=== PATIENT | female | born 1950 | race Two or more races ===

== ENCOUNTER → 2017-08-28 | Outpatient (CLI) | payer MEDICARE, OTHER | END | disposition home or self-care (01) | LOC: MAMMO 08:09 | DX: Z12.31 Encounter for screening mammogram for malignant neoplasm of breast (principal); D86.9 Sarcoidosis, unspecified | CPT/HCPCS: 71046; 77063; 77067 ==

== ENCOUNTER 2018-08-31 20:10 | Emergency (ER) | payer MEDICARE, OTHER ==
[~2018-08-31] VITALS: Ht 165.1 cm; Wt 104.3 kg
--- NOTE | 2018-08-31 20:38 | PHYS DOC ---
Adult General Chief Complaint Chief Complaint: MECHANICAL FALL HPI HPI Patient is a 67 year old female who presents to the ED today status post falling down 3 steps. Patient denies any loss of consciousness. She is complaining of mild right forehead pain, right humerus pain, right lateral rib pain. She states she was walking down the steps when she fell. Patient denies being on any blood pain is. Denies any neck pain. Denies any back pain. (CHANDRAKANT CHAPIN APRN) Review of Systems Review of Systems Constitutional: Denies fever or chills [] Eyes: Denies change in visual acuity, redness, or eye pain [] HENT: Denies nasal congestion or sore throat [] Respiratory: Reports right lateral rib pain. Denies cough or shortness of breath [] Cardiovascular: No additional information not addressed in HPI [] GI: Denies abdominal pain, nausea, vomiting, bloody stools or diarrhea [] : Denies dysuria or hematuria [] Musculoskeletal: Reports right humerus pain Integument: Denies rash or skin lesions [] Neurologic: Reports right forehead pain. Denies headache, focal weakness or sensory changes [] All other systems were reviewed and found to be within normal limits, except as documented in this note. (CHANDRAKANT CHAPIN APRN) Current Medications Current Medications Current Medications Medications (Trade) Dose Ordered Sig/Maikel Start Time Stop Time Status Last Admin Dose Admin Acetaminophen/ Hydrocodone Bitart (Lortab 5/325) 1 tab 1X ONCE 08/31/18 22:00 08/31/18 22:01 DC 08/31/18 21:31 1 TAB (DAMARI DUBON DO) Allergies Allergies Allergies Coded Allergies Type Severity Reaction Last Updated Verified No Known Drug Allergies 08/31/18 No (DAMARI DUBON DO) Physical Exam Physical Exam Constitutional: Well developed, well nourished, no acute distress, non-toxic appearance. [] HENT:Trace bruising noted above the right eyelid only. Normocephalic, bilateral external ears normal, oropharynx moist, no oral exudates, nose normal. [] Eyes: PERRLA, EOMI, conjunctiva normal, no discharge. [] Neck: Normal range of motion, no tenderness, supple, no stridor. [] Cardiovascular:Heart rate regular rhythm, no murmur [] Lungs & Thorax: No ecchymosis or bruising noted on the chest. Slight tenderness on palpation of the right lateral ribs mid axillary line approximately ribs 3,4 and 5, slight tenderness also on the same ribs mid clavicular line. Bilateral breath sounds clear to auscultation [] Abdomen: Bowel sounds normal, soft, no tenderness, no masses, no pulsatile masses. [] Skin: Warm, dry, no erythema, no rash. [] Back: No tenderness, no CVA tenderness. [] Extremities: Right upper extremity with no obvious deformity. Tenderness on palpation of the right humerus diffusely. Limited adduction of the right upper extremity due to pain. Adequate radial, medial, ulnar sensation to the right upper extremity. +2 right pedal pulse. Full range of motion to the right upper extremity. Neurologic: Alert and oriented X 3, normal motor function, normal sensory function, no focal deficits noted. Cranial nerves II through XII intact. see HENT Psychologic: Affect normal, judgement normal, mood normal. [] (CHANDRAKANT CHAPIN APRN) Current Patient Data Vital Signs Vital Signs Date Time Temp Pulse Resp B/P (MAP) Pulse Ox O2 Delivery O2 Flow Rate FiO2 08/31/18 22:28 18 98 Room Air 08/31/18 22:25 84 08/31/18 20:20 98.8 174/80 (111) 98.8 (DAMARI DUBON DO) EKG EKG [] (CHANDRAKANT CHAPIN APRN) Radiology/Procedures Radiology/Procedures [] (CHANDRAKANT CHAPIN APRN) Course & Med Decision Making Course & Med Decision Making Pertinent Labs and Imaging studies reviewed. (See chart for details) This is a 67-year-old. Presented to the ED today to be evaluated status post falling. Complaining of right forehead/eyebrow bruising, right humerus pain, right rib pain. CT of the head, x-rays of the right shoulder, right humerus, right rib including PA chest are negative for any acute findings. Ice elevation encouraged. Follow-up with PCP in a week. Provided return precautions. Daughter Interpreted for Kazakh (CHANDRAKANT CHAPIN APRN) Dragon Disclaimer Dragon Disclaimer This electronic medical record was generated, in whole or in part, using a voice recognition dictation system. (CHANDRAKANT CHAPIN APRN) Departure Departure Impression: Primary Impression: Fall down steps Additional Impressions: Contusion of rib on right side Contusion of right upper extremity Forehead contusion Disposition: HOME, SELF-CARE Condition: STABLE Referrals: DAMARI BURCIAGA MD (PCP) Follow-up in one week Patient Instructions: Contusion, [id number], Fall Prevention and Home Safety Additional Instructions: You were evaluated in the emergency room after falling, your x-rays and CT were negative for any acute findings. Try to ice and elevate the affected area. Take the prescribed medications as needed for pain. Scripts Meloxicam (MOBIC) 7.5 Mg Tablet 1 TAB PO DAILY, #10 TAB 0 Refills Prov: CHANDRAKANT CHAPIN APRN 08/31/18 Cyclobenzaprine Hcl (CYCLOBENZAPRINE HCL) 10 Mg Tablet 1 TAB PO TID, #30 TAB Prov: CHANDRAKANT CHAPIN APRN 08/31/18 Attending Signature Attending Signature I have reviewed the PA/LIGHT RAIL TRANSIT OPERATOR's note and plan of care. I was available for consultation as needed during the patient's visit in the emergency department. I agree with the clinical impression, plan, and disposition. (DAMARI DUBON DO) Problem Qualifiers Primary Impression: Fall down steps Encounter type: initial encounter Qualified Codes: W10.8XXA - Fall (on) ( from) other stairs and steps, initial encounter Additional Impressions: Contusion of rib on right side Encounter type: initial encounter Qualified Codes: S20.211A - Contusion of right front wall of thorax, initial encounter Contusion of right upper extremity Encounter type: initial encounter Qualified Codes: S40.021A - Contusion of right upper arm, initial encounter Forehead contusion Encounter type: initial encounter Qualified Codes: S00.83XA - Contusion of other part of head, initial encounter CHANDRAKANT CHAPIN APRN Aug 31, 2018 20:38 DAMARI DUBON DO Sep 01, 2018 04:30
--- NOTE | 2018-08-31 21:29 | RAD ---
CT HEAD WO CONTRAST Date: 08/31/2018 8:23 PM Clinical Indication: FALL Comparison: None. Technique: 5 mm axial tomographic images were obtained of the head without contrast. These were viewed on brain and bone windows. Findings: Mild generalized cerebral and cerebellar volume loss. Trace nonspecific periventricular hypoattenuation, most commonly seen with chronic small vessel ischemic disease. No intra- or extra-axial mass or fluid collection. No acute hemorrhage. The ventricles are normal in size, shape, and morphology. The max-white matter junction is normal. The basilar cisterns are patent. The visualized paranasal sinuses are normal. The visualized portions of the orbits and globes are normal. The mastoid air cells are clear. No aggressive osseous lesion or fracture. Impression: 1. No acute intracranial process. 2. Mild cerebral volume loss. Trace chronic small vessel ischemic disease. Electronically signed by: Hugo Salas MD (08/31/2018 9:26 PM) [id number]
--- NOTE | 2018-08-31 21:32 | RAD ---
HUMERUS RIGHT, SHOULDER 2+V RIGHT (right shoulder AP internal and external rotation, transscapular Y) INDICATION: Trauma , fall COMPARISON: None. SHOULDER FINDINGS: No acute fracture or malalignment. Moderate acromioclavicular and glenohumeral joint arthrosis Bony mineralization is normal for the patient's age. No significant soft tissue abnormality. No radiopaque foreign body. HUMERUS FINDINGS: No acute fracture or malalignment. Medial epicondylar calcific tendinosis The joint spaces are maintained. Bony mineralization is normal for the patient's age. No significant soft tissue abnormality. No radiopaque foreign body. IMPRESSION: No acute fracture or malalignment. Electronically signed by: Hugo Salas MD (08/31/2018 9:29 PM) [facility]
--- NOTE | 2018-08-31 21:34 | RAD ---
AP view of the chest, right rib oblique views. Comparison: Chest radiograph dated 08/27/2008. Indication: Trauma , fall Findings: Normal lung volume. No focal airspace disease. Unchanged pulmonary vasculature. No pleural effusion. No pneumothorax. Unchanged cardiomegaly. The great vessels are normal. No acute osseous abnormality. No displaced rib fracture. Impression: 1. No acute cardiopulmonary process. 2. No displaced rib fracture. Electronically signed by: Hugo Salas MD (08/31/2018 9:31 PM) [id number]
[2018-08-31] MEDS ORDERED: HYDROcodone/APAP 5/325MG 1 TAB TABLET PO ONE (22:00)
[2018-08-31] MEDS ORDERED: MELO7.5T5 PO (22:02)
[2018-08-31] MEDS ORDERED: CYCL10TA2 PO (22:02)
[2018-08-31 22:25] VITALS: BP 149/63
== END 2018-08-31 22:30 | disposition home or self-care (01) ==
LOC: ER 20:10
DX: S00.83XA Contusion of other part of head, initial encounter (principal); S20.211A Contusion of right front wall of thorax, initial encounter; S40.021A Contusion of right upper arm, initial encounter; W10.9XXA Fall (on) (from) unspecified stairs and steps, initial encounter; Y93.01 Activity, walking, marching and hiking; Y92.89 Other specified places as the place of occurrence of the external cause; Y99.8 Other external cause status
CPT/HCPCS: 70450; 71101; 73030; 73060; 99284-25

== ENCOUNTER → 2018-11-07 | Outpatient (CLI) | payer MEDICARE, OTHER ==
[~2018-11-07] MED LIST: CONTRAST GIVEN. MC PRN; CYCL10TA2 PO; IOHEXOL 180 MG/ML 10 ML VIAL. INT ART ONE; LIDOCAINE 1% Multi-Dose 20 ML VIAL. ID ONE; MELO7.5T5 PO
--- NOTE | 2018-11-07 18:18 | KCIC ---
CT arthrogram of the right shoulder Indication: Right shoulder pain, limited range of motion after a fall 1.5 months ago. Exposure: One or more of the following individualized dose reduction techniques were utilized for this examination: 1. Automated exposure control 2. Adjustment of the mA and/or kV according to patient size 3. Use of iterative reconstruction technique. Findings: Acromioclavicular joint is mildly degenerative. There are small undersurface osteophytes with mass effect. There is a full-thickness tear of the supraspinatus and infraspinatus tendon. Retraction measures about 3 cm. There is a probable at least partial tear of the subscapularis tendon. There is oiuh-is-nmpzlpux muscle atrophy. Contrast does extend into the subdeltoid bursa. No large articular cartilage defect of the glenohumeral joint is seen. Biceps tendon is difficult to visualize, could be torn. No definite labral detachment. No acute fracture or aggressive bone destruction. Note there is a linear extravasation of contrast laterally from the subdeltoid bursa, presumably from a defect in the bursa. The contrast extends into the lateral deltoid muscle. The visualized right lung is grossly clear. IMPRESSION: 1. There is a full-thickness rupture of the supraspinatus and infraspinatus tendon with retraction, and likely partial subscapularis tendon tear. 2. Poorly seen biceps tendon, could indicate a tear. Electronically signed by: Vinicius Perez MD (11/07/2018 6:15 PM) [facility]
--- NOTE | 2018-11-07 18:19 | KCIC ---
Right shoulder contrast injection using fluoroscopic guidance prior to CT History: Right shoulder pain, fell 1.5 months ago. Technique: The procedure and associated risks, including infection, bleeding or allergic reaction, were explained to the patient. Informed written consent was obtained. Time-out procedure was performed. The anterior shoulder was prepped and draped in usual sterile manner. Local anesthetic was obtained with lidocaine. A 22 gauge needle was advanced without difficulty into the glenohumeral joint. After negative aspiration, a mixture of 15 cc Omnipaque 180 contrast and 5 cc 1 percent lidocaine mixture was injected without difficulty, to a total volume of 12 cc. Needle was removed. Patient tolerated the procedure well without immediate complication and left in stable condition. Patient was given instructions to contact us or go to the emergency room if there are any unexpected complications, which were explained. Fluoroscopy time: ?46 seconds Fluoroscopy does demonstrate evidence of rotator cuff tear, will be further evaluated on CT. Electronically signed by: Vinicius Perez MD (11/07/2018 6:16 PM) [facility]
== END | disposition home or self-care (01) ==
LOC: KCIC 10:25
PROVIDERS: ATTEND Orthopaedic Surgery Sports Medicine
DX: S46.011A Strain of muscle(s) and tendon(s) of the rotator cuff of right shoulder, initial encounter (principal); M19.011 Primary osteoarthritis, right shoulder; M25.711 Osteophyte, right shoulder; J45.909 Unspecified asthma, uncomplicated; I10 Essential (primary) hypertension; E11.9 Type 2 diabetes mellitus without complications; M62.511 Muscle wasting and atrophy, not elsewhere classified, right shoulder; W19.XXXA Unspecified fall, initial encounter; Y93.89 Activity, other specified; Y92.89 Other specified places as the place of occurrence of the external cause; Y99.8 Other external cause status
CPT/HCPCS: 73040; 73201; Q9965

== ENCOUNTER → 2019-01-08 | Day surgery (SDC) | payer MEDICARE, OTHER ==
[~2019-01-08] VITALS: Ht 162.6 cm; Wt 99.8 kg
[~2019-01-08] MED LIST changes: +ALBU2.5V8 INH; +ALBUTEROL SULFATE 2.5 MG/3 ML NEBU. ONE; +ALEN70TA3 PO; +ALPR0.5T6 PO; +ASPI81TA50 PO; +ATOR40TA PO; +BUPIVACAINE MPF 0.5% 30 ML VIAL. ONE; +CALC500O PO; -CONTRAST GIVEN. MC PRN; +DEXAMETHASONE SOD PHOS 20 MG/5 ML VIAL. ONE; +DEXAMETHASONE SOD PHOS 4 MG/ML VIAL ONE; +DOCU-109 PO; +EPINEPHrine VIAL 30 MG/30 ML VIAL ONE; +ERGO500027 PO; +ESMOLOL 100 MG/10 ML VIAL. IVP ONE; +FLUT1DIS3 IH; +GLYCOPYRROLATE 1 MG/5 ML VIAL. ONE; +HYDROmorphone 2 MG/ML VIAL IV PRN; -IOHEXOL 180 MG/ML 10 ML VIAL. INT ART ONE; +IPRATRPIUM/ALBUTEROL 0.5/2.5MG 3 ML NEBU. ONE; +IV RINGERS,LACTATED 1000ML 1,000 ML IV SCH; +LEVO125T PO; +LIDOCAINE 1% 20 ML VIAL. ONE; -LIDOCAINE 1% Multi-Dose 20 ML VIAL. ID ONE; +LIDOCAINE 1% PF 2 ML VIAL. ID PRN; +LOSA1TAB19 PO; +METF500T16 PO; +MIDAZOLAM HCL/PF 2 MG/2 ML VIAL. ONE; +MORPHINE SULFATE 2 MG/ML VIAL. IV PRN; +MULT1TAB52 PO; +NEOSTIGMINE METHYLSULFATE 5 MG/5 ML SYRINGE. ONE; +OMEG1CAP6 PO; +ONDA8TAB9 PO; +ONDANSETRON PF 4 MG/2 ML VIAL. IV PRN; +ONDANSETRON PF 4 MG/2 ML VIAL. ONE; +OXYC-325 PO; +PHENYLEPHRINE in 0.9% NACL PF 1 MG/10 ML SYRINGE. IV ONE; +POLY119P4 PO; +PROCHLORPERAZINE 10 MG/2 ML VIAL. IV PRN; +PROCHLORPERAZINE 10 MG/2 ML VIAL. ONE; +ROCURONIUM 50 MG/5 ML VIAL. ONE; +ROPIVacaine 0.5% PF 20 ML VIAL. ONE; +SCOPOLAMINE 1.5MG PATCH. TD ONE; +SEVOFLURANE > 120 MINUTES. IH ONE; +SUCCINYLCHOLINE 200 MG/10 ML VIAL. ONE; +ceFAZolin 2GM PREMIX 2 GM/50 ML BAG IV ONE; +ePHEDrine PF IN SALINE 50 MG/10 ML SYRINGE. IV ONE; +fentaNYL PF VIAL 100 MCG/2 ML VIAL IV PRN; +fentaNYL PF VIAL 100 MCG/2 ML VIAL ONE; +oxyCODONE/APAP 5/325 1 TAB TABLET PO ONE
[2019-01-08] MEDS: INSULIN LISPRO 100 UNIT/ML 3ML VIAL for OP,RR ONLY. SQ PRN ×2 (07:21→10:45)
--- NOTE | 2019-01-08 07:42 | DISCH ---
DISCHARGE INSTRUCTIONS Condition on Discharge Condition on Discharge: Stable Activity After Discharge Activity Instructions for Disc: Other ROM activity Other activity instructions: arm to remain in sling Bathing Instructions: Shower-keep dressing dry Weight Bearing Status after Di: Non weight bearing Diet after Discharge Diet after Discharge: Regular Wound Incision Care Wound/Incision Care: Ice to area for comfort, Keep wound/cast CDI, Change dressing Contacting the DRMargarito after DC Call your doctor for: Concerns you may have Follow-Up Follow up with: Ronal in 2 wks ROMEO BURGOS II, MD Jan 08, 2019 07:42
--- NOTE | 2019-01-08 09:25 | PDOC4 ---
Operative Note Operative Note Date of procedure: 01/08/2019 Surgeon: Mark Burgos Looping Inspector: Annie Dubon, certified histologic technician Preoperative diagnosis: Chronic right rotator cuff tear Postoperative diagnosis: Same Procedure performed: Arthroscopic right shoulder rotator cuff repair Anesthesia: Gen. plus regional nerve block Findings: Large retracted, 2 tendon, tear of rotator cuff Biceps rupture Intact subscapularis and teres minor Grade 2-3 changes at glenoid anteroinferiorly. Humeral head unremarkable No loose bodies Labrum intact circumferentially Blood loss: 10 mL Complications: None Components inserted: Garcia and nephew helacoil x 3, footprint for lateral row Reason for procedure: Patient is a very pleasant 68-year-old female with long- standing right shoulder pain and dysfunction. I'd seen in consultation as an outpatient. She had tried conservative therapies and after clinical and radiographic examination were reviewed by myself, we discussed the risks, benefits, alternatives to the above operation and she wished to proceed. Description of procedure: Patient was greeted in the preoperative area by myself for the correct extremity was verified and marked. She was taken back to the operative suite after she had placement regional nerve block by the anesthesiology team. Once in the operative room, she was transferred gently supine the operating table and had successful induction of a general anesthetic. After this, we sat her up in a beachchair position maintaining her C-spine in a neutral position, large pattern her legs. She was secured the bed with all pressure points padded. We then proceeded to prep and drape right upper extremity and shoulder girdle in our usual sterile fashion including [place] at the periphery. After this, I palpated and marked surface anatomy. We conducted our standard preoperative timeout. I then used a spinal needle to localize a posterior superior portal and incised skin in accordance with this. I just used the blunt arthroscopic trocar into the glenohumeral joint and used a spinal needle to localize an anterosuperior portal. I then introduce my probe and conducted my diagnostic arthroscopy with the above-noted findings. I then created a lateral portal, pulled traction on the biceps stump and used a scissors to transected followed by shaver to debride the stump back to the labrum. I then debrided the rotator cuff tear and the footprint, taking care not to decorticate to the lateral portal this time as well. I tested the cuff mo bility, it was poor. Therefore use combination of a arthroscopic elevator and electrocautery device to mobilize the rotator cuff tendon from the intra- articular vantage point. After this, I repositioned my camera into the subacromial space and continued on with my bursectomy and release. This did help the mobility of the rotator cuff a little bit more. After this, I placed my 3 suture anchors. I had created an accessory posterolateral portal for suture management. I then used the first pass suture device to shuttle the suture limbs through in a simple configuration. After this, I began to tie them down using arthroscopic knot-tying techniques. The posterior most tissue was too friable and it did not hold any suture, the everything tore free even prior to cinching the knot down securely. I was able to mobilize the rotator cuff tendon and repair back to the humeral head with the remainder 2 suture anchors. I cut one limb from each of these and then incorporated the remainder of the limbs into my lateral row fixation device. The tear was stable to probing and gentle rotation of the arm. After this I removed all excess arthroscopic fluid and the arthroscopic instrumentation. Portals were closed with simple interrupted 2-0 nylon. The arm was cleansed and dried and a sterile bulky soft dressing was applied followed by an abduction pillow sling. Patient was awakened from anesthesia and laid supine. She tolerated surgery well. No complications. At the conclusion, she was transferred gently C supine to the recovery room cart and taken to PACU stable next bit condition. Postoperative plan is discharge her home. We will hold off on starting physical therapy for 2 weeks. She'll be nonweightbearing. I'll see her back in 2 weeks, sooner should a problem arise MARK BURGOS II, MD Jan 08, 2019 09:25
[2019-01-08] MEDS: fentaNYL PF VIAL 100 MCG/2 ML VIAL IV PRN ×2 (09:45→10:00)
[2019-01-08 10:05] VITALS: BP 155/62
== END ==
LOC: SURG 06:03
PROVIDERS: ATTEND Orthopaedic Surgery Sports Medicine
DX: M75.111 Incomplete rotator cuff tear or rupture of right shoulder, not specified as traumatic (principal); M66.821 Spontaneous rupture of other tendons, right upper arm; E11.9 Type 2 diabetes mellitus without complications; I10 Essential (primary) hypertension; E03.9 Hypothyroidism, unspecified; E78.00 Pure hypercholesterolemia, unspecified; Z79.899 Other long term (current) drug therapy; Z98.51 Tubal ligation status; Z79.84 Long term (current) use of oral hypoglycemic drugs
CPT/HCPCS: 29822; 29827; 36415; 64415; 82306; 82962; A7015; C1713; C1782; J0171; J0330; J0696; J0780; J1100; J2250; J2370; J2405; J2710; J2795; J3010; J3490; J7120; J7613; J7620

== ENCOUNTER 2019-04-07 07:14 | Day surgery (SDC) | payer OTHER, MEDICAID ==
[~2019-04-07 07:14] MED LIST changes: -ALBUTEROL SULFATE 2.5 MG/3 ML NEBU. ONE; -BUPIVACAINE MPF 0.5% 30 ML VIAL. ONE; -DEXAMETHASONE SOD PHOS 20 MG/5 ML VIAL. ONE; -DEXAMETHASONE SOD PHOS 4 MG/ML VIAL ONE; -EPINEPHrine VIAL 30 MG/30 ML VIAL ONE; -ESMOLOL 100 MG/10 ML VIAL. IVP ONE; -GLYCOPYRROLATE 1 MG/5 ML VIAL. ONE; -HYDROmorphone 2 MG/ML VIAL IV PRN; -IPRATRPIUM/ALBUTEROL 0.5/2.5MG 3 ML NEBU. ONE; -IV RINGERS,LACTATED 1000ML 1,000 ML IV SCH; -LIDOCAINE 1% 20 ML VIAL. ONE; -LIDOCAINE 1% PF 2 ML VIAL. ID PRN; -MIDAZOLAM HCL/PF 2 MG/2 ML VIAL. ONE; -MORPHINE SULFATE 2 MG/ML VIAL. IV PRN; -NEOSTIGMINE METHYLSULFATE 5 MG/5 ML SYRINGE. ONE; -ONDANSETRON PF 4 MG/2 ML VIAL. IV PRN; -ONDANSETRON PF 4 MG/2 ML VIAL. ONE; -PHENYLEPHRINE in 0.9% NACL PF 1 MG/10 ML SYRINGE. IV ONE; -PROCHLORPERAZINE 10 MG/2 ML VIAL. IV PRN; -PROCHLORPERAZINE 10 MG/2 ML VIAL. ONE; -ROCURONIUM 50 MG/5 ML VIAL. ONE; -ROPIVacaine 0.5% PF 20 ML VIAL. ONE; -SCOPOLAMINE 1.5MG PATCH. TD ONE; -SEVOFLURANE > 120 MINUTES. IH ONE; -SUCCINYLCHOLINE 200 MG/10 ML VIAL. ONE; -ceFAZolin 2GM PREMIX 2 GM/50 ML BAG IV ONE; -ePHEDrine PF IN SALINE 50 MG/10 ML SYRINGE. IV ONE; -fentaNYL PF VIAL 100 MCG/2 ML VIAL IV PRN; -fentaNYL PF VIAL 100 MCG/2 ML VIAL ONE; -oxyCODONE/APAP 5/325 1 TAB TABLET PO ONE
[2019-04-07] MEDS ORDERED: IV RINGERS,LACTATED 1000ML 1,000 ML IV SCH (07:46)
[2019-04-07] MEDS ORDERED: MIDAZOLAM HCL/PF 2 MG/2 ML VIAL. IV PRN (08:00)
[2019-04-07] MEDS ORDERED: fentaNYL PF VIAL 100 MCG/2 ML VIAL IV PRN ×2 (08:00)
[2019-04-07] MEDS ORDERED: LIDOCAINE 1% PF 2 ML VIAL. ID PRN (08:00)
[2019-04-07] MEDS: INSULIN LISPRO 100 UNIT/ML 3ML VIAL for OP,RR ONLY. SQ PRN ×2 (08:01→09:03)
[2019-04-07] MEDS ORDERED: PROPOFOL 20 ML IV ONE (09:02)
[2019-04-07] MEDS ORDERED: fentaNYL PF VIAL 100 MCG/2 ML VIAL ONE (09:04)
--- NOTE | 2019-04-07 09:36 | DISCH ---
DISCHARGE INSTRUCTIONS Condition on Discharge Condition on Discharge: Stable Activity After Discharge Activity Instructions for Disc: Other ROM activity Other activity instructions: ROM at shoulder twice daily Bathing Instructions: Shower-keep dressing dry Weight Bearing Status after Di: As tolerated, Non weight bearing Diet after Discharge Diet after Discharge: Regular Wound Incision Care Wound/Incision Care: Ice to area for comfort, Keep wound/cast CDI, Change dressing Contacting the DR. after DC Call your doctor for: Concerns you may have Follow-Up Follow up with: Ronal in 2 wks Follow Up With: PT tomorrow ROMEO BURGOS II, MD Apr 07, 2019 09:36
--- NOTE | 2019-04-07 09:42 | PDOC4 ---
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 I'd seen and evaluated her and reviewed PT notes. We had a discussion of the risks, alternatives, and benefits with her and her family and they wish proceed with this procedure. Description of procedure: Patient was greeted in the PACU where the correct extremity was verified and marked. She received conscious sedation monitored by the anesthesiology team and after adequate relaxation, range of motion was 2 forward elevation to 110, external rotation to 30, abduction to 60. I then performed repeated closed manipulation maneuvers in abduction and forward elevation using a short lever arm which achieved a gratifying release. Final range of motion was forward elevation to 160, external rotation to 30, abduction to 90. She was awakened from sedation. She tolerated this procedure well. She is placed into a sling. I discussed the importance of twice daily range of motion exercises with her and her daughter. Have a PT appointment set up for tomorrow. I will see her back in 2 weeks, sooner should a problem arise. She'll be d ischarged home. MARK BURGOS II, MD Apr 07, 2019 09:42
[2019-04-07 10:00] VITALS: BP 156/77
== END 2019-04-07 10:04 | disposition home or self-care (01) ==
LOC: SURG 07:14
PROVIDERS: ATTEND Orthopaedic Surgery Sports Medicine
DX: M24.611 Ankylosis, right shoulder (principal); I10 Essential (primary) hypertension; E78.5 Hyperlipidemia, unspecified; E11.9 Type 2 diabetes mellitus without complications; G47.33 Obstructive sleep apnea (adult) (pediatric); F41.9 Anxiety disorder, unspecified; G47.30 Sleep apnea, unspecified; E66.9 Obesity, unspecified; M81.0 Age-related osteoporosis without current pathological fracture; E03.9 Hypothyroidism, unspecified; J45.909 Unspecified asthma, uncomplicated; Z98.890 Other specified postprocedural states; Z79.82 Long term (current) use of aspirin; Z79.899 Other long term (current) drug therapy; Z79.84 Long term (current) use of oral hypoglycemic drugs; Z98.51 Tubal ligation status
CPT/HCPCS: 23700; 82962; J2704; J3010

== ENCOUNTER → 2020-02-12 | Outpatient (CLI) | payer OTHER, MEDICAID ==
[~2020-02-12] MED LIST changes: +MULT-445 PO; -MULT1TAB52 PO
--- NOTE | 2020-02-12 18:05 | KCIC ---
Bilateral digital screening mammograms with 3-D tomosynthesis: Reason for examination: Routine screening. Comparison is made to previous studies dated 08/28/2017 and 06/05/2016. Bilateral mammograms in CC and oblique projections were obtained with 2-D imaging and 3-D tomosynthesis imaging on a Siemens Inspiration unit and reviewed on the workstation. Interpretation was made with the benefit of CAD. The skin and nipples show no abnormalities. No abnormal axillary lymph nodes are seen. The breast parenchyma shows scattered fatty and fibroglandular density. (Breast density: Category B.) There continue to be small nodular densities in the left breast at the 1:00 position anteriorly and at the 9:00 position anteriorly which are stable. There are no new dominant masses, suspicious calcifications or architectural distortion. Impression: No evidence of malignancy. Recommend routine screening. BI-RAD Category 2: Benign. "Our facility is accredited by the [employer] Mammography Program." This patient's information has been entered into a reminder system for the patient to be notified with the results of her examination and a target date for the next mammogram. Electronically signed by: Yesica Jaime MD (02/12/2020 6:01 PM) [id number]
== END | disposition home or self-care (01) ==
LOC: KCIC MAMMO 13:16
PROVIDERS: ATTEND Family Medicine
DX: Z12.31 Encounter for screening mammogram for malignant neoplasm of breast (principal); N64.89 Other specified disorders of breast
CPT/HCPCS: 77063; 77067

== ENCOUNTER → 2021-09-22 | Outpatient (CLI) | payer OTHER, MEDICAID ==
[~2021-09-22] MED LIST changes: +CYCL10TA19 PO; -CYCL10TA2 PO
--- NOTE | 2021-09-22 11:52 | RAD ---
BILATERAL DIGITAL SCREENING 2-D AND 3-D MAMMOGRAM INDICATION: Routine screening. COMPARISON: February 12, 2020, August 28, 2017 and June 05, 2016 Interpretation was made using CAD. FINDINGS: Breast Density: There are scattered areas of fibroglandular density. RIGHT BREAST: No suspicious masses, calcifications or areas of architectural distortion are seen. LEFT BREAST: No suspicious masses, calcifications or areas of architectural distortion are seen. IMPRESSION: 1. No imaging evidence of malignancy. ASSESSMENT: BI-RADS 1. Negative. RECOMMENDATION: Routine annual screening mammogram. The facility will notify the patient of the results via mail. Patient information will be entered int o the mammography reminder system with a target recall date for the next mammogram. A reminder letter will be generated by the facility. Electronically signed by: Flori Burton MD (09/22/2021 11:50 AM) [id number]
== END ==
LOC: MAMMO 07:54
PROVIDERS: ATTEND Family Medicine
DX: Z12.31 Encounter for screening mammogram for malignant neoplasm of breast (principal)
CPT/HCPCS: 77063; 77067